=== PATIENT | male | born 1950 | race Caucasian/White ===

== ENCOUNTER 2017-01-07 17:38 | Emergency (ER) | payer MEDICARE, BC ==
[2017-01-07 18:16] VITALS: RESP 18; TEMP 97.4
[2017-01-07 18:43] LABS: BASOPHILS % (AUTO) 1 % (0-3); EOSINOPHILS % (AUTO) 1 % (0-9); HEMATOCRIT 38 % (39-53); MEAN CORPUSCULAR HGB CONC 34.8 gm/dl (32.0-36.0); MEAN CORPUSCULAR VOLUME 84 fL (80-100); MONOCYTES % (AUTO) 11.4 % (0-12); NEUTROPHILS % (AUTO) 57.1 % (37-80)
[2017-01-07 20:45] VITALS: BP 135/76
[2017-01-07 20:46] VITALS: PULSE 60; O2SAT 90
== END 2017-01-07 21:14 | disposition home or self-care (01) | DRG 69 ==
LOC: ED 17:38
DX: G45.9 Transient cerebral ischemic attack, unspecified (principal)
CPT/HCPCS: 36415; 70496; 70498; 85025; 85651; 99285; Q9967